=== PATIENT | male | born 1980 | race Two or more races ===

== ENCOUNTER 2024-12-27 03:27 | Emergency (ER) | payer BC, SELFPAY ==
[2024-12-27 03:29] VITALS: BP 129/86; PULSE 101; RESP 19; TEMP 37.1; O2SAT 97
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
--- NOTE | 2024-12-27 03:47 | PC.NURSE ---
Willow Townsend [id number] From [place] [facility] stated if Pt is not wanting to do a report then no contact is made.
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
[2024-12-27] MEDS: MORPHINE SULF INJ 10 MG/ML VIAL 5 MG IVP (04:07)
[2024-12-27] MEDS: ONDANSETRON INJ 2 MG/ML INJ 2 ML 4 MG IV (04:07)
[2024-12-27] MEDS: SODIUM CHLORIDE 0.9% 1000 ML 1,000 ML 999 ML IV (04:10)
[2024-12-27 04:36] LABS: Basophils % (Auto) 0 % (0-2.5); Eosinophils % (Auto) 0 % (0-10); Hematocrit 44.1 % (41.0-53.0); Immature Granulocytes % (Auto) 1 % (0-0); Immature Granulocytes Auto 0.06 Thou/mm3 (0.00-0.00); Lymphocytes # (Auto) 1.9 Thou/mm3 (1.0-4.8); Lymphocytes % (Auto) 15 % (10-50); Mean Corpuscular HGB Conc 36.3 g/dl (31.0-37.0); Mean Corpuscular Hemoglobin 31.7 pg (25.0-35.0); Mean Corpuscular Volume 87 fL (80-100); Monocytes # (Auto) 0.4 Thou/mm3 (0.0-0.8); Monocytes % (Auto) 3 % (0-12); Neutrophils # (Auto) 10.1 Thou/mm3 (1.8-7.7); Neutrophils % (Auto) 81 % (37-80); Nucleated Red Blood Cell % 0 /100 WBC (0); Platelet Count 220 Thou/mm3 (140-440); RDW Standard Deviation 38.1 fL (35.1-43.9); Red Blood Count 5.05 Miln/mm3 (4.50-5.90); White Blood Count 12.5 Thou/mm3 (3.8-10.6)
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
[2024-12-27 04:46] VITALS: BMI 21.4
[2024-12-27 05:22] LABS: INR 0.9 (0.9-1.3); Partial Thromboplastin Time 24.5 Seconds (22.0-36.0); Prothrombin Time 10.3 Seconds (9.0-12.2)
[2024-12-27 05:31] LABS: Alanine Aminotransferase 18 U/L (10-49); Albumin, Serum 4.7 gm/dL (3.5-5.0); Albumin/Globulin Ratio 1.7 (1.2-2.2); Alcohol, Blood Medical 102.3 mg/dL (0-10.0); Alkaline Phosphatase 75 U/L (46-116); Anion Gap 12 (7-16); Aspartate Amino Transferase 34 U/L (0-34); BUN/Creatinine Ratio 14 Ratio (12-20); Bilirubin,Total 0.4 mg/dL (0.3-1.2); Blood Urea Nitrogen 17 mg/dL (9-23); Calcium 9.2 mg/dL (8.3-10.6); Calcium (Corrected) 9.2 mg/dL (8.5-10.1); Chloride 107 mMol/L (98-107); Creatinine (Component) 1.2 mg/dL (0.6-1.3); Estimated Creatinine Clearance 73.8 mL/min (>60); Globulin 2.7 gm/dL (2.3-3.5); Glucose 134 mg/dL (74-106); Magnesium 2.1 mg/dL (1.6-2.6); Osmolality,Calculated 294 (275-295); Potassium 3.3 mMol/L (3.4-5.1); Sodium 146 mMol/L (136-145); Total Protein 7.4 gm/dL (5.7-8.2); eGFR > 60 See Note
--- NOTE | 2024-12-27 05:42 | PRELIM_ITS ---
CT scan of the head without intravenous contrast (axial sections with sagittal and coronal reformats). December 27, 2024 0359 hours Clinical History: head trauma Comparison: None Findings: There is no intracranial hemorrhage, extra-axial collection, mass, mass-effect or midline shift. There is good vidales-white differentiation. There is no CT evidence of acute large vascular territorial infarct. Ventricles are not enlarged or effaced. Visualized paranasal sinuses and tympanomastoid cavities are clear except for mild left maxillary sinus mucosal thickening. The bony calvarium is intact. Scalp soft tissue swelling suggested on the right. Impression: No intracranial hemorrhage, mass-effect or midline shift. No CT evidence of acute large vascular territorial infarct. Report Electronically Signed By: Victorino Minaya 12/27/2024 5:42:28 AM [EST]
[2024-12-27 05:54] VITALS: O2SAT 96
[2024-12-27 06:00] VITALS: BP 117/81; PULSE 91; RESP 20; O2SAT 95
--- NOTE | 2024-12-27 06:02 | PRELIM_ITS ---
CT scan of the cervical spine without intravenous contrast (axial sections with sagittal and coronal reformats). December 27, 2024 0359 hours Clinical History: neck pain Comparison: None Findings: There is no fracture, traumatic subluxation or other acute osseous abnormality of the cervical spine. There is straightening of the cervical spine. There is degenerative change of the cervical spine. The prevertebral soft tissues are unremarkable. There is scarring within the lung apices. Impression: No acute osseous abnormality of the cervical spine. Straightening of the cervical spine may indicate muscle spasm. Report Electronically Signed By: Victorino Minaya 12/27/2024 6:01:27 AM [EST]
[2024-12-27] MEDS: LIDOCAINE JELLY 2% (Urojet) 10 ML TUBE TOP (06:22)
[2024-12-27] MEDS: POTASSIUM CHLORIDE 20 mEq TABCR 40 MEQ PO (06:23)
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
[2024-12-27 06:42] LABS: Collection Type, Urine Clean Catch; Squamous Epithelial Cell,Urine 0 /hpf (0-5)
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
[2024-12-27 07:30] LABS: Bilirubin,Urine Negative (Negative); Blood,Urine Negative (Negative); Clarity,Urine Clear (Clear/Hazy); Color,Urine Lt-Yellow (Lt Yel-Yel); Culture Indicated,Urine Not Indicated; Glucose, Urine Negative (Negative); Ketones,Urine Negative (Negative); Leukocyte Esterase,Urine Negative (Negative); Nitrite,Urine Negative (Negative); Protein,Urine Trace (Neg - Trace); RBC,Urine 2 /hpf (0-3); Specific Gravity,Urine 1.026 (1.001-1.035); Urobilinogen,Urine Negative mg/dL (0.0-1.0); WBC,Urine 1 /hpf (0-5)
[2024-12-27 07:48] VITALS: BP 123/83; PULSE 78; RESP 16; TEMP 37.8; O2SAT 99
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
[2024-12-27 10:05] VITALS: BP 125/76; PULSE 72; RESP 16; O2SAT 95
== END 2024-12-27 10:05 | disposition home or self-care (01) ==
PROVIDERS: Emergency Medicine; Emergency Provider Emergency Medicine; PCP Obstetrics & Gynecology
DX: S00.03XA Contusion of scalp, initial encounter (principal); S30.0XXA Contusion of lower back and pelvis, initial encounter; S81.011A Laceration without foreign body, right knee, initial encounter; Y09 Assault by unspecified means; F10.129 Alcohol abuse with intoxication, unspecified; S02.2XXA Fracture of nasal bones, initial encounter for closed fracture; Y90.9 Presence of alcohol in blood, level not specified
CPT/HCPCS: 36415; 70450; 70486; 71260; 72125; 73564; 74177; 80053; 80320; 81001; 83735; 85025; 85610; 85730; 96361; 96374; 99285; A4649; J2270; J2405; J7030; Q9967; A9270; G0480

== ENCOUNTER → 2025-01-01 | Outpatient (CLI) | payer BC, SELFPAY ==
--- NOTE | 2025-01-01 10:59 | XR_ITS ---
Examination: Knee, right , 3 views Technique: Knee AP, lateral, oblique 3 views Date and time of exam: January 01, 2025 1149 hours INDICATIONS: Right knee swelling and pain beginning one week ago. FINDINGS: No fracture or dislocation. Minimal narrowing medial joint space IMPRESSION: Minimal narrowing medial joint space
--- NOTE | 2025-01-01 10:59 | XR_ITS ---
Examination: Shoulder,right, 3 views Technique: Shoulder AP internal rotation, AP external rotation, Y view shoulder, 3 views Exam date and time :January 01, 2025 1149 hours INDICATIONS: Right shoulder pain beginning one week ago. FINDINGS: Mild narrowing glenohumeral joint No shoulder fracture or dislocation No calcific tendinitis IMPRESSION: Mild narrowing glenohumeral joint
== END | disposition home or self-care (01) ==
PROVIDERS: PCP Nurse Practitioner Family; Referring Provider Nurse Practitioner Family; Visit Provider Nurse Practitioner Family
DX: M25.811 Other specified joint disorders, right shoulder (principal); M25.861 Other specified joint disorders, right knee; S49.90XA Unspecified injury of shoulder and upper arm, unspecified arm, initial encounter; Y04.0XXA Assault by unarmed brawl or fight, initial encounter
CPT/HCPCS: 73030; 73562